=== PATIENT | female | born 1955 | race Two or more races ===

== ENCOUNTER 2022-06-16 16:39 | Emergency (ER) | payer OTHER ==
[~2022-06-16] VITALS: Ht 157.5 cm; Wt 75.1 kg
[2022-06-16 20:00] VITALS: BP 151/78
== END 2022-06-16 20:09 | disposition home or self-care (01) ==
LOC: ER 16:39
DX: S30.850A Superficial foreign body of lower back and pelvis, initial encounter (principal); I10 Essential (primary) hypertension; Z88.8 Allergy status to other drugs, medicaments and biological substances; X58.XXXA Exposure to other specified factors, initial encounter; Y93.89 Activity, other specified; Y92.89 Other specified places as the place of occurrence of the external cause; Y99.8 Other external cause status
CPT/HCPCS: 73502; 74018; 74176